=== PATIENT | female | born 1935 | race Caucasian/White ===

== ENCOUNTER 2019-11-30 21:32 | Inpatient (IN) | payer MEDICARE ==
--- NOTE | 2019-11-30 23:10 | ULT ---
GALLBLADDER ULTRASOUND: 11/30/19 HISTORY: Right upper quadrant pain. Echogenic gallstones are seen within the gallbladder lumen. Gallbladder wall thickness is normal. The common duct is normal caliber. Visualized liver and pancreas unremarkable. Images of the right kidney reveal a hyperechoic focus in the renal cortex measuring 1.0 cm. This coul d potentially represent an angiomyolipoma. It does not exhibit posterior shadowing and is probably no t a stone. Kidneys otherwise unremarkable with no evidence of hydronephrosis. IMPRESSION: 1. Cholelithiasis. 2. Hyperechoic lesion in the right renal cortex. Correlation made to CT performed earlier today. This low density lesion is most consistent with an angiomyolipoma. POS: [facility]
[2019-12-01] MEDS ORDERED: Ondansetron ODT 4 MG TAB SL PRN (00:13)
[2019-12-01] MEDS ORDERED: Ondansetron PF 4 MG/2 ML Vial IVP PRN (00:13)
[2019-12-01] MEDS ORDERED: Acetaminophen 325 MG TAB PO PRN ×3 (00:13→14:42)
[2019-12-01] MEDS: Sodium Chloride 0.9% 1,000 ML IV SCH ×4 (00:26→22:02)
[2019-12-01 00:34] VITALS: BMI 37.5
[2019-12-01] MEDS ORDERED: hydrALAZINE 20 MG/ML VIAL SLOW IVP PRN (00:52)
[2019-12-01] MEDS ORDERED: Amlodipine 5 MG TAB PO SCH (01:30)
[2019-12-01] MEDS ORDERED: Benzonatate 100 MG CAP PO PRN (01:32)
[2019-12-01] MEDS: Morphine 2 MG/ML SYRINGE SLOW IVP PRN ×2 (04:17→07:28)
[2019-12-01 05:52] LABS: #Eosinphils 0.1 thou/uL (0.0-0.7); #Lymphocytes 1.2 thou/uL (1.20-3.40); #Monocytes 0.4 thou/uL (0.11-0.59); %Basophils 0.3 % (0.0-1.0); %Eosinophils 1.3 % (0.0-10.0); %Lymphocytes 17.5 % (21.0-51.0); %Monocytes 5.8 % (0.0-10.0); %Neutrophils 75.1 % (42.0-75.0); Hemoglobin 14.7 g/dL (12.0-16.0); Mean Corpuscular HGB CONC 34.1 g/dL (32.0-36.0); Mean Corpuscular Hemoglobin 30.8 pg (27.0-31.0); Mean Corpuscular Volume 90.2 fL (78.0-98.0); Mean Platelet Volume 7.5 fL (7.4-10.4); Platelet Count 134 thou/uL (130-400); RBC Distribution Width 12.3 % (11.5-14.5); Red Blood Cell (RBC) Count 4.78 mill/uL (4.20-5.40); White Blood Cell (WBC) Count 6.7 thou/uL (4.8-10.8)
[2019-12-01 06:12] LABS: ALT (SGPT) 19 U/L (8-55); AST (SGOT) 18 U/L (5-34); Albumin 3.9 g/dL (3.4-4.8); Alkaline Phosphatase 73 U/L (40-110); Anion Gap 13 mmol/L (10-20); BUN (Urea Nitrogen) 9 mg/dL (9.8-20.1); Bilirubin, Total 2.7 mg/dL (0.2-1.2); Calc. Creatinine Clearance 101 mL/min (70-130); Carbon Dioxide 23 mmol/L (23-31); Chloride 105 mmol/L (98-107); Estimated GFR-MDRD 80; Globulin 3.2 g/dL (2.4-3.5); Glucose 118 mg/dL (83-110); Potassium 3.7 mmol/L (3.5-5.1); Protein, Total 7.1 g/dL (6.0-8.3); Sodium 137 mmol/L (136-145)
[2019-12-01] MEDS: Oxybutynin ER 5 MG TAB PO SCH (09:11)
[2019-12-01] MEDS: Amlodipine 5 MG TAB PO SCH (09:11)
--- NOTE | 2019-12-01 09:44 | HP ---
CHIEF COMPLAINT: Right upper quadrant pain. HISTORY OF PRESENT ILLNESS: Ms. Villanueva is an 84-year-old woman, who had sudden onset of severe right upper quadrant pain yesterday afternoon. She is unable to identify what brought it on. She has had minor similar pains for the past few months intermittently, but they have never been severe or lasted long. She states that the pain is worse when she takes a deep breath and severe when she tries to cough. The only thing that helps is pain medication received in the hospital and keeping completely still. She has not had any fevers or chills. She has had nausea and anorexia. She has been otherwise well. PAST MEDICAL HISTORY: Hypertension and mild dementia. PAST SURGICAL HISTORY: , hysterectomy, unilateral oophorectomy, back surgery, and SI joint fusion and appendectomy as a child. ALLERGIES: SHE REPORTS AN ALLERGY TO PENICILLIN AND LATEX. MEDICATIONS: The patient could remember her home medication, but according to her , she takes; 1. Amlodipine 5 mg p.o. daily. 2. Aricept 5 mg p.o. at bedtime. 3. Oxybutynin 10 mg p.o. daily. 4. Protonix 40 mg p.o. daily. FAMILY HISTORY: No significant pertinent problems. REVIEW OF SYSTEMS: Ten system review of systems is negative except per HPI. The patient specifically denies fevers, chills, cough, sore throat, runny nose, or shortness of breath or chest pain. PHYSICAL EXAMINATION: VITAL SIGNS: The patient has been afebrile since her admission. She initially had fairly severe hypertension, but this has responded to medications. This morning , her temperature is 98, heart rate 75, respirations 16, 96% saturated on room air , blood pressure 138/74. GENERAL: Reveals a pleasant elderly woman, in no acute distress. She is not flushed or toxic in appearance. She is not jaundiced or icteric. HEENT: Unremarkable. NECK: Supple without lymphadenopathy or thyroid nodules. HEART: Regular in its rate and rhythm without murmurs, rubs, or gallops. LUNGS: Clear to auscultation bilaterally. ABDOMEN: Soft and nondistended. She has healed surgical incisions without palpable hernias. She is focally tender to palpation in the right upper quadrant with a positive Davis sign. Otherwise nontender to palpation. EXTREMITIES: Warm and well perfused without pitting edema. NEURO: No focal deficits. PSYCHIATRIC: Alert, oriented and appropriate. She does not know the exact date , but knows that it is almost Easter and knows that she is in the hospital in [place] and knows her name and date and can give recent history appropriately and consistently. SOCIAL HISTORY: The patient has a distant history of intermittent rare tobacco use when she was young. She takes a shot of traditional [place] liqueur in the evenings to help her sleep. Does not use any other illicit drugs. She lives at home with her . RADIOLOGY: CT images in [place] showed multiple radiopaque stones in the gallbladder including one in the gallbladder neck. There was some mild pericholecystic stranding noted with possible wall thickening. The bile duct was normal caliber. No radiopaque stones were seen in the bile duct. Ultrasound here showed multiple stones, but the wall thickness was normal. There was no pericholecystic fluid. She did have a positive sonographic Davis sign. LABORATORY DATA: White count is normal at 6.7, but she does have a left shift of 75% neutrophils. Electrolytes are unremarkable. Bilirubin is elevated at 2.7, which is up from last night at 1.9. She has some chronic mild elevation in the past with bilirubin ranging from 1.2 to 2. Troponin last night was less than 0.01 and EKG did not show any acute ST changes. She did have some PACs and Q-waves in inferior leads. Lipase was normal. ASSESSMENT: Acute cholecystitis with persistent positive Davis sign despite antibiotics started in the emergency room last night. Her bilirubin is elevated somewhat. This may be due to the cholecystitis. She did not have any radiopaque stones in her bile duct and her bile duct is not dilated nor are any of her other LFTs elevated. She also has a mild baseline chronic elevation of her bilirubin , so I think the choledocholithiasis although possible is not likely. I discussed the patient's case with Dr. Cisneros of Gastroenterology and he and I are in agreement that the most appropriate course of treatment is laparoscopic cholecystectomy with cholangiogram with ERCP to follow if the cholangiogram shows evidence of choledocholithiasis. I discussed this with the patient. I discussed the procedure of laparoscopic cholecystectomy and its inherent risks as well as ERCP with its inherent risks, she expresses understanding of these and wishes to proceed. Due to her mild dementia, we will also obtain telephone consent from her prior to proceeding. All of her questions were answered. She is on scheduled antibiotics. Job ID: [id number] MTDD
[2019-12-01] MEDS ORDERED: Fentanyl 100 MCG/2 ML VIAL ONE (11:10)
[2019-12-01] MEDS ORDERED: Phenylephrine 10 MG/ML VIAL ONE (11:11)
[2019-12-01] MEDS ORDERED: Lidocaine 1% w/Epinephrine 1:100K 20 ML VIAL ONE (11:18)
[2019-12-01] MEDS ORDERED: Bupivacaine 0.25% HCL 30 ML VIAL ONE (11:18)
[2019-12-01] MEDS ORDERED: Iothalamate Meglumine 60% 30 ML VIAL FS ONE (11:23)
[2019-12-01] MEDS ORDERED: Vancomycin 1 GM/200 ML BAG ONE (11:27)
[2019-12-01] MEDS ORDERED: Rocuronium Bromide 10 MG/ML (10ML VIAL) ONE (11:55)
[2019-12-01] MEDS ORDERED: Glycopyrrolate 0.2 MG/ML 5 ML SYRINGE ONE (11:55)
[2019-12-01] MEDS ORDERED: Lidocaine 1% PF 5 ML VIAL ONE (11:55)
[2019-12-01] MEDS ORDERED: PROPOFOL 200 MG/20 ML VIAL ONE (11:55)
[2019-12-01] MEDS ORDERED: Vancomycin 1 GM in Premix Bag 1 BAG IVPB SCH (12:00)
[2019-12-01] MEDS ORDERED: Promethazine HCl 25 MG/ML VIAL SLOW IVP PRN (13:13)
[2019-12-01] MEDS ORDERED: Promethazine HCl 25 MG/ML VIAL IM PRN (13:13)
[2019-12-01] MEDS ORDERED: Ondansetron HCl/PF 4 MG/2 ML Vial IVP PRN (13:13)
--- NOTE | 2019-12-01 13:38 | RAD ---
INTRAOPERATIVE CHOLANGIOGRAM: 12/01/2019 HISTORY: Laparoscopic cholecystectomy. COMPARISON: None. FINDINGS: A single intraoperative image demonstrates contrast media within the gallbladder fossa, cystic duct a nd common bile duct. No common bile duct filling defect seen. IMPRESSION: Intraoperative cholangiogram, as above. POS: [facility]
[2019-12-01] MEDS ORDERED: HYDROcodone/Acetaminophen 5/325 mg Tablet PO PRN (14:40)
[2019-12-01] MEDS ORDERED: traMADol HCl 50 MG TAB PO PRN ×2 (14:41)
[2019-12-01] MEDS ORDERED: Ibuprofen 200 MG TAB PO PRN ×2 (14:42)
[2019-12-01] MEDS ORDERED: Ondansetron PF 4 MG/2 ML Vial SLOW IVP PRN (14:43)
[2019-12-01] MEDS ORDERED: Ondansetron ODT 4 MG TAB PO PRN (14:43)
--- NOTE | 2019-12-01 15:25 | PDOC.OP ---
Operative Note - Operative Note Operative Note: DATE OF PROCEDURE: 12/01/2019 PROCEDURES: Laparoscopic cholecystectomy with intraoperative cholangiogram. SURGEON: Kishore Sandhu M.D. PREOPERATIVE DIAGNOSIS: Cholelithiasis and cholecystitis, possible choledocholithiasis POSTOPERATIVE DIAGNOSIS: Cholelithiasis and cholecystitis FINDINGS: Chronically distended thin-walled gallbladder with extensive omental adhesions and normal intraoperative cholangiogram HISTORY: Patient with gallstones and signs and symptoms of cholecystitis. Laparoscopic cholecystectomy was recommended for symptomatic relief and prevention of future episodes. Intraoperative cholangiogram was also recommended due to mildly elevated bilirubin. PROCEDURE: After informed consent was obtained and appropriate preoperative antibiotics were administered, the patient was taken to the operating room and placed in the supine position and general endotracheal anesthesia was administered. The stomach was decompressed with an OG tube and the abdomen was prepped and draped in standard sterile fashion. Local anesthesia was infused to the skin and subcutaneous tissues at the umbilical level. A transverse skin incision was made. The fascia was elevated and a Veress needle was placed into the abdominal cavity without difficulty. Opening pressure was less than 5 and carbon dioxide gas easily insufflated to an intra-abdominal pressure of 15, which the patient tolerated well. The Veress needle was withdrawn and a [place] port advanced under direct vision. The abdominal cavity was carefully examined. There was no evidence of Veress needle or of trocar injury. Local anesthesia was infused to the skin and subcutaneous tissues at the epigastric, right upper quadrant, and right lateral abdominal sites and trocars were placed under direct vision of the laparoscope. The fundus of the gallbladder was grasped and retracted superiorly. There were omental adhesions to the body of the gallbladder which were taken down through the avascular plane using careful electrocautery as necessary. The gallbladder was noted to be very distended and thin-walled. The infundibulum was grasped and retracted laterally. The serosa was stripped inferiorly at the level of the neck of the gallbladder exposing the cystic duct and artery which were traced clearly to their insertion in the gallbladder. These were dissected free circumferentially and the cystic duct was clipped at the level of the neck of the gallbladder. The cystic artery was clipped but not divided. An incision was made in the cystic duct inferior to the clip and the cystic duct was palpated with no stones palpable. Clear bile was seen to flow from the cystic duct incision. A cholangiogram catheter was introduced and placed into the cystic duct and secured with a clip. A cholangiogram was obtained which showed an adequate length of cystic duct. There was normal filling of the common bile duct with free flow of contrast into the duodenum. There was normal retrograde flow into the common hepatic duct beyond the level of the bifurcation without filling defects. The cholangiogram catheter was removed and the cystic duct clipped below the incision in the cystic duct. The cystic duct was divided between these clips and the previously placed clip. The cystic artery was clipped and divided between the previously placed clips. The gallbladder was then dissected free of the gallbladder bed using hook electrocautery. During this process the thin-walled gallbladder tore where it was being grasped at the fundus. The bile was clear and green and was suctioned out. Prior to complete removal of the gallbladder from the gallbladder bed, the area of the cystic duct and artery stumps was examined. The clips were in good position completely across these structures and there was no bleeding and no leakage of bile. The gallbladder was then placed into an EndoCatch bag and drawn out through the epigastric incision. The epigastric trocar was replaced and the operative site easily irrigated to clear. There was no significant bleeding and all bile spilled from the gallbladder was irrigated to clear. The epigastric trocar was removed and the fascia closed under direct laparoscopic vision with a 0 Vicryl suture on a GraNee needle in a [id number] manner with excellent technical result. The right upper quadrant and right lateral abdominal trocars were removed and hemostasis verified. Carbon dioxide gas was allowed to desufflate through the umbilical trocar which was then removed. The skin incisions were closed with 4-0 subcuticular Monocryl sutures and Dermabond dressings were placed. The patient was extubated and taken to the recovery room in good condition. There were no complications. ESTIMATED BLOOD LOSS: Minimal. SPECIMEN : Gallbladder and contents.
[2019-12-01] MEDS ORDERED: Donepezil HCl 5 MG TAB PO SCH (21:00)
[2019-12-01] MEDS ORDERED: Prevnar 13-Val Conj/PF 0.5 ML SYRINGE IM ONE (21:00)
[2019-12-02] MEDS: Sodium Chloride 0.9% 1,000 ML IV SCH (08:06)
[2019-12-02] MEDS: Amlodipine 5 MG TAB PO SCH (08:20)
[2019-12-02] MEDS: Oxybutynin ER 5 MG TAB PO SCH (08:20)
[2019-12-02 11:59] VITALS: BP 122/69; TEMP 97.9
== END 2019-12-02 11:55 | disposition home or self-care (01) | DRG 419 ==
LOC: ERS 21:32 → SURG A 23:02
PROVIDERS: ADMIT Surgery; ATTEND Surgery
PROC: 0FT44ZZ Resection of Gallbladder, Percutaneous Endoscopic Approach (ICD-10-PCS; principal; 2019-12-01)
PROC: 0DNU4ZZ Release Omentum, Percutaneous Endoscopic Approach (ICD-10-PCS; 2019-12-01)
PROC: BF131ZZ Fluoroscopy of Gallbladder and Bile Ducts using Low Osmolar Contrast (ICD-10-PCS; 2019-12-01)
DX: K80.00 Calculus of gallbladder with acute cholecystitis without obstruction (principal); I10 Essential (primary) hypertension; E66.9 Obesity, unspecified; F03.90 Unspecified dementia, unspecified severity, without behavioral disturbance, psychotic disturbance, mood disturbance, and anxiety; Z90.49 Acquired absence of other specified parts of digestive tract; Z90.710 Acquired absence of both cervix and uterus; Z88.0 Allergy status to penicillin; Z91.040 Latex allergy status; Z68.37 Body mass index [BMI] 37.0-37.9, adult
CPT/HCPCS: 36415; 47532; 76705; 80053; 82248; 85025; 88304; J0360; J0744; J2001; J2270; J2370; J2405; J2704; J3010; J3370; S0020

== ENCOUNTER 2022-08-18 06:57 | Outpatient (CLI) | payer MEDICARE | END 2022-08-18 06:58 | disposition home or self-care (01) | LOC: BICULT 06:57 | PROVIDERS: ATTEND Physician Assistant | DX: E87.6 Hypokalemia (principal); R17 Unspecified jaundice; R94.5 Abnormal results of liver function studies; E80.7 Disorder of bilirubin metabolism, unspecified; D17.71 Benign lipomatous neoplasm of kidney | CPT/HCPCS: 76705 ==